=== PATIENT | male | born 1980 ===

== ENCOUNTER 2025-07-28 14:39 | Outpatient (CLI) | payer MEDICAID, SELFPAY ==
--- NOTE | 2025-07-28 16:09 | DI.RAD_ITS ---
Exam(s) XR THUMB RT EXAM: XR THUMB RT CLINICAL HISTORY: S61.001A Open wound RT thumb w/o damage to nail. r/o bony injury. TECHNIQUE: 2D digital imaging was performed. Three views. COMPARISON: No exams were available for comparison FINDINGS: BONES: There is a nondisplaced fracture at the tuft of the distal phalanx. No bony destructive lesion is seen. JOINTS: No dislocation present. SOFT TISSUE: There is gauze overlying the distal thumb. There is a soft tissue defect distally. No retained foreign body. IMPRESSION: Nondisplaced tuft fracture. Soft tissue defect. No foreign body. DATA REPOSITORY: RADIATION DOSE DELIVERED:
== END 2025-07-28 14:59 ==
PROVIDERS: Visit Provider Physician Assistant Medical
DX: S61.001A Unspecified open wound of right thumb without damage to nail, initial encounter (principal)
CPT/HCPCS: 73140